=== PATIENT | male | born 1995 | race Caucasian/White ===

== ENCOUNTER 2025-09-15 10:05 | Outpatient (AMB) | payer OTHER, SELFPAY ==
[2025-09-15 10:14] VITALS: BP 126/80; PULSE 87; RESP 18; TEMP 36.3; O2SAT 96; BMI 28.1
--- NOTE | 2025-09-15 10:14 | A.OFFPC_ITS ---
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 Accompanied by: Self / Same As Patient Allergies Seasonal Allergies Allergy (Mild, Verified 09/15/25 10:21) Unknown Medication List - Last Reconciled 09/15/25 by Margaret Jones MD No Known Home Meds Tobacco use date assessed: 09/15/25 Dental Screening Dental Screen Date: 09/15/25 Did you have a dental visit in the last 12 months?: Yes Did you have a dental problem in the last 6 months where you did not have access to dental care?: No Was dental information given to patient?: Patient has dentist HPI HPI Comments History of Present Illness Details The patient is a 30-year-old male establishing [facility]. He is presenting for management of Attention-Deficit/Hyperactivity Disorder (ADHD). He was diagnosed with ADHD in second or third grade and was treated with Ritalin, which he reports was highly effective. He had an adverse reaction to Concerta in the past, which caused mood swings and anger. 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 Recently, he has noticed increased distractibility and has made a couple of mistakes at work, which has prompted him to seek treatment again due to concerns about jeopardizing his career. He has been in therapy for almost two years, and his therapist supports the decision to restart medication. The patient reports a history of borderline alcoholism during the pandemic, with daily drinking, but has since implemented stricter rules for himself. He uses nicotine pouches and acknowledges that he should probably not use them while on ADHD medication. Family history is significant for lung cancer in his maternal grandmother who smoked, and an unspecified history of cancer on both sides of his family. He has received two initial COVID-19 vaccine doses and one booster. He also reports having received hepatitis C vaccines in the past. [facility], [facility] Medical History (Updated 09/15/25 @ 14:26 by Margaret Jones MD) ADHD Social History (Updated 09/15/25 @ 10:30 by Hermelinda Gómez MA) Household Members: None Housing: Apartment Alcohol intake: current Patient Tobacco Use Status: Never used Tobacco e-Cigarette/Vaping Use: Former Use Current occupational status: employed Current occupation: [employer] Cognitive needs: No Hearing needs: No Vision needs: Yes Questionnaire PHQ-9 Over the last 2 weeks, how often have you been bothered by any of the following problems? 1. Little interest or pleasure in doing things: not at all 2. Feeling down, depressed, or hopeless: not at all 3. Trouble falling or staying asleep, or sleeping too much: several days 4. Feeling tired or having little energy: not at all 5. Poor appetite or overeating: not at all 6. Feeling bad about yourself - or that you are a failure or have let yourself or your family down: not at all 7. Trouble concentrating on things, such as reading the newspaper or watching television: several days 8. Moving or speaking so slowly that other people could have noticed. Or the opposite - being so fidgety or restless that you have been moving around a lot more than usual: not at all 9. Thoughts that you would be better off or of hurting yourself in some way: not at all Total score: 2 Source: Developed by Drs. Mamadou Stubbs, Brandi Valles, Rob Huerta and colleagues, with an educational ranjeet from [employer]. Thrive Questionnaire Date Thrive assessed: 09/15/25 I am a: Patient What is your living situation today?: I have a steady place to live Within the past 12 months, did the food you bought not last and you didn't have the money to get more?: Never true Within the past 12 months, did you worry whether your food would run out before you got money to buy more?: Never true Do you have trouble paying for medicines?: No Do you have trouble getting transportation to medical appointments?: No Do you have trouble paying your heating and electricity bill?: No Do you have trouble taking care of your child, family member or friend?: No Do you have trouble with day-to-day activities such as bathing, preparing meals, shopping, managing finances, etc.?: No Are you currently unemployed and looking for a job?: No Are you interested in more education?: I choose not to answer this question Please select the resources that you would like help with: None Currently or been in a relationship where the following occur: No concerns reported THRIVE Score: 0 AUDIT C Alcohol Use Questionnaire (AUDIT-C) 1. How often do you have a drink containing alcohol?: 2-4 times a month 2. How many drinks containing alcohol do you have on a typical day when you are drinking?: 3 or 4 3. How often do you have six or more drinks on one occasion?: Less than monthly Total Score: 4 SURENDRA-7 AMB Questionnaire SURENDRA-7 Date SURENDRA - 7 assessed: 09/15/25 Feeling nervous, anxious, or on edge: 0 = Not at all Not being able to stop or control worryin = Not at all Worrying too much about different things: 0 = Not at all Trouble relaxin = Not at all Being so restless that it is hard to sit still: 0 = Not at all Becoming easily annoyed or irritable: 0 = Not at all Feeling afraid as if something awful might happen: 0 = Not at all Total SURENDRA-7 score (0-4 normal; 5-9 mild; 10-14 moderate; 15-21 severe): 0 Source: Developed by Drs. Mamadou Stubbs, Brandi Valles, Rob Huerta and colleagues, with an educational ranjeet from [employer]. Review of Systems Const Details: As per HPI. Physical exam (Primary Care) Vital Signs: Last Vital Signs Temp 97.3 F 09/15/25 10:14 Pulse 87 09/15/25 10:14 Resp 18 09/15/25 10:14 BP 126/80 09/15/25 10:14 Pulse Ox 96 09/15/25 10:14 Oxygen Delivery Method Room Air 09/15/25 10:14 BMI result Body Mass Index 28.1 Tobacco/Smoking Status: Tobacco use Status Tobacco use date assessed 09/15/25 09/15/25 10:33 Patient Tobacco Use Status Never used Tobacco 09/15/25 10:33 e-Cigarette/Vaping Use Former Use 09/15/25 10:33 PHQ-9: PHQ-9 Score PHQ-9: Total score 2 09/15/25 10:37 Thrive Assessment: Date of Thrive Assessment Date Thrive assessed 09/15/25 09/15/25 10:33 Currently or been in a relationship where the following occur: No concerns reported Const Other: Pertinent findings are in BOLD GENERAL APPEARANCE NAD, activity normal for age, well developed/ well nourished, no cyanosis, pallor, or diaphoresis. EYES lids/conjunctiva normal. EARS/NOSE/THROAT Mucous membranes moist, nares normal, lips/teeth normal uvula midline without oral pharyngeal erythema, exudate or swelling TMs normal bilaterally. No lymphangitis/lymphedema. HEAD/NECK normocephalic atraumatic, no facial trauma, neck is supple. RESPIRATORY respiratory effort normal, speaks in full sentences, no tripod position, no accessory muscle use. Lungs clear to auscultation without rhonchi, wheezes, rales CARDIAC Regular rate and rhythm, no edema. ABDOMINAL Soft, ND/NT. No evidence of fluid wave. No pulsatile masses on exam, rebound tenderness, Escobar sign or pain over Mcburney's point. MUSCLES/EXTREMITIES No abnormal range of motion, no swelling. SKIN Warm, pink and dry. No rashes, dermatoses, petechiae or lesions. NEUROLOGICAL Speech is clear and appropriate. Normal level of consciousness. Gait and coordination are normal. 5/5 strength in all extremities. PSYCH Normal mood and affect. Judgement/competence is appropriate Coding Level of Care Code New Pt Level 4 (50064) New Pt Prev Care 18-39yr(03299 Diagnoses Healthcare maintenance Z00.00 Attention deficit hyperactivity disorder (ADHD), predominantly inattentive type F90.0 Attention deficit-hyperactivity disorder type: predominantly inattentive Time Spent (min) 30 Assessment & Plan Assessment & Plan (1) Healthcare maintenance: Code(s): Z00.00 - Encounter for general adult medical examination without abnormal findings Category: Medical Plan: CBC, CMP, Lipid panel, A1C, TSH w T4, vit D. Ordered today. Shingles 2 doses when >50 yo. At 50. COVID: two doses. Completed in the past. Pneumococcal: >50 yo. 18-49 with CKD, lung disease, weakened immune system, Heart disease, DM, cochlear implant. At 50. Flu vaccine: He gets it in the . Tdap: every 10 years. He gets at the . Colonoscopy: 45-75. at 45. No family history of colon cancer. AAA: 65 -75. at 65. CT lun - 80. at 50. PSA: 50 -70 every two years. HIV: Ordered. HCV: Ordered. (2) ADHD: Code(s): F90.9 - Attention-deficit hyperactivity disorder, unspecified type Category: Medical Qualifiers: Attention deficit-hyperactivity disorder type: predominantly inattentive Qualified Code(s): F90.0 - Attention-deficit hyperactivity disorder, predominantly inattentive type Plan: - The patient has a clear history of ADHD from childhood with a positive response to Ritalin. - His current symptoms are significantly impacting his job performance, warranting a return to pharmacotherapy. - Will prescribe Ritalin (methylphenidate) ER 10 mg once daily. - Discussed taking the medication on workdays and having breaks on weekends to reduce the risk of dependence and to allow for social drinking without mixing substances. - Counseled the patient to avoid alcohol consumption while on Ritalin due to the risk of consuming more alcohol than intended, but advised that if he plans to drink, he should not take the medication that day. - Advised that treatment with a stimulant may help reduce his use of other substances like nicotine. - The patient will need to provide documentation of the prescription to his [facility]. - Follow-up scheduled in one month to assess medication efficacy and tolerance. 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 We reviewed his past positive experience with Ritalin. I have prescribed Ritalin ER 10 mg daily and recommended he take it on work days while taking breaks on weekends to help prevent dependence. I counseled him extensively on substance use, advising him not to consume alcohol while on Ritalin due to the risk of increased alcohol intake. We discussed that if he plans to drink, he should skip his medication dose for the day. We also discussed that correctly medicating his ADHD may help reduce his cravings for other substances like nicotine. I explained that I will be ordering baseline labs, including a general health panel, HIV, and Hepatitis C tests. I also advised him to check with his [facility] regarding the specific documentation needed for his prescription, as it is a controlled substance. I will see him for a follow-up in one month to assess his response to the medication. Orders: Orders Hepatitis C Antibody Reflex Today Z00.00 - Encounter for general adult medical examination without abnormal findings Complete Blood Count no Diff Today Z00.00 - Encounter for general adult medical examination without abnormal findings Comprehensive Met. Panel Today Z00.00 - Encounter for general adult medical examination without abnormal findings Hemoglobin A1c Today Z00.00 - Encounter for general adult medical examination without abnormal findings HIV Ab/Ag Today Z00.00 - Encounter for general adult medical examination without abnormal findings TSH reflex Free T4 Today Z00.00 - Encounter for general adult medical examination without abnormal findings Lipid Panel Today Z00.00 - Encounter for general adult medical examination without abnormal findings Medications: New methylphenidate HCl LA (Ritalin LA) Partial Fill upon patient request. 10 mg PO DAILY 30 caps 0RF
== END 2025-09-15 11:10 | disposition home or self-care (01) ==
LOC: HO.HMCH 10:06
PROVIDERS: Visit Provider Internal Medicine
DX: F90.0 Attention-deficit hyperactivity disorder, predominantly inattentive type (principal)

== ENCOUNTER → 2025-09-15 10:05 | Outpatient (BNVA) | payer OTHER, SELFPAY | PROVIDERS: Visit Provider Internal Medicine | DX: Z00.00 Encounter for general adult medical examination without abnormal findings (principal); F90.0 Attention-deficit hyperactivity disorder, predominantly inattentive type; Z72.0 Tobacco use | CPT/HCPCS: 99202 ==

== ENCOUNTER 2025-10-20 10:48 | Outpatient (AMB) | payer OTHER, SELFPAY ==
--- NOTE | 2025-10-20 11:19 | A.OFFPC_ITS ---
Vital Signs 10/20/25 11:20 Height 6 ft 1 in Weight 212 lb 2 oz BMI 28.0 BP 126/90 H Blood Pressure Location Lt brachial Position Sitting Pulse 80 Pulse Source Pulse Oximeter Temp 97.3 F Temp Source Temporal Artery Scan Pulse Oximetry (%) 96 Oxygen Delivery Method Room Air Intake Visit Reasons: 1 month fu Intake Note: Patient is here to follow up on ADHD. Director Of Medical Services Required: No K9 Handler: Not Required per policy Accompanied by: Self / Same As Patient Allergies Seasonal Allergies Allergy (Mild, Verified 10/20/25 11:20) Unknown Medication List - Last Reconciled 10/20/25 by Margaret Jones MD methylphenidate HCl LA (Ritalin LA) 10 mg PO DAILY Tobacco use date assessed: 10/20/25 Dental Screening Dental Screen Date: 09/15/25 HPI HPI Comments History of Present Illness Details The patient is a 30 year old individual presenting for a follow-up on Ritalin treatment for ADHD. The patient has a history of ADHD, with an official diagnosis made between second and third grade. Past medication trials include Concerta, which was ineffective and caused mood swings, and Ritalin, which the patient last took at age 18 before enlisting in the . The patient was recently restarted on Ritalin and reports it is helping significantly with focus and productivity at work, noting tasks that previously took hours are now completed in half an hour. The patient states that while the medication does not worsen anxiety, it makes it easier to focus on negative thoughts, though this has not been overwhelming. The patient takes the medication on workdays and takes breaks on the weekends. The patient has significantly reduced alcohol consumption but occasionally has a beer or whiskey on weekends, and will not take Ritalin on days the patient plans to drink. The patient uses Zyn nicotine pouches and has noticed a reduction in their use on days when taking Ritalin, with an eventual goal to quit. The patient used to use vape pens but stopped four to five years ago. [facility] Medical History (Updated 10/20/25 @ 12:58 by Margaret Jones MD) ADHD Surgical History (Updated 10/20/25 @ 11:25 by RENE Campbell) No pertinent past surgical history Social History Household Members: None Housing: Apartment Alcohol intake: current Patient Tobacco Use Status: Never used Tobacco e-Cigarette/Vaping Use: Former Use Second Hand Smoke Exposure: No service: No Current occupational status: employed Current occupation: [employer] Cognitive needs: No Hearing needs: No Vision needs: Yes Questionnaire Thrive Questionnaire Date Thrive assessed: 09/15/25 I am a: Patient What is your living situation today?: I have a steady place to live Within the past 12 months, did the food you bought not last and you didn't have the money to get more?: Never true Within the past 12 months, did you worry whether your food would run out before you got money to buy more?: Never true Do you have trouble paying for medicines?: No Do you have trouble getting transportation to medical appointments?: No Do you have trouble paying your heating and electricity bill?: No Do you have trouble taking care of your child, family member or friend?: No Do you have trouble with day-to-day activities such as bathing, preparing meals, shopping, managing finances, etc.?: No Are you currently unemployed and looking for a job?: No Are you interested in more education?: I choose not to answer this question Please select the resources that you would like help with: None Currently or been in a relationship where the following occur: No concerns reported THRIVE Score: 0 SURENDRA-7 AMB Questionnaire SURENDRA-7 Date SURENDRA - 7 assessed: 09/15/25 Source: Developed by Drs. Mamadou Stubbs, Brandi Valles, Rob Huerta and colleagues, with an educational ranjeet from [employer]. Review of Systems Const Details: As per HPI. Physical exam (Primary Care) Vital Signs: Last Vital Signs Temp 97.3 F 10/20/25 11:20 Pulse 80 10/20/25 11:20 BP 126/90 H 10/20/25 11:20 Pulse Ox 96 10/20/25 11:20 Oxygen Delivery Method Room Air 10/20/25 11:20 BMI result Body Mass Index 28.0 Tobacco/Smoking Status: Tobacco use Status Tobacco use date assessed 10/20/25 10/20/25 11:27 Patient Tobacco Use Status Never used Tobacco 10/20/25 11:27 e-Cigarette/Vaping Use Former Use 10/20/25 11:27 Thrive Assessment: Date of Thrive Assessment Date Thrive assessed 09/15/25 10/20/25 11:27 Currently or been in a relationship where the following occur: No concerns reported Const Other: Pertinent findings are in BOLD GENERAL APPEARANCE NAD, activity normal for age, well developed/ well nourished, no cyanosis, pallor, or diaphoresis. EYES lids/conjunctiva normal. EARS/NOSE/THROAT Mucous membranes moist, nares normal, lips/teeth normal uvula midline without oral pharyngeal erythema, exudate or swelling TMs normal bilaterally. No lymphangitis/lymphedema. HEAD/NECK normocephalic atraumatic, no facial trauma, neck is supple. RESPIRATORY respiratory effort normal, speaks in full sentences, no tripod position, no accessory muscle use. Lungs clear to auscultation without rhonchi, wheezes, rales CARDIAC Regular rate and rhythm, no edema. ABDOMINAL Soft, ND/NT. No evidence of fluid wave. No pulsatile masses on exam, rebound tenderness, Escobar sign or pain over Mcburney's point. MUSCLES/EXTREMITIES No abnormal range of motion, no swelling. SKIN Warm, pink and dry. No rashes, dermatoses, petechiae or lesions. NEUROLOGICAL Speech is clear and appropriate. Normal level of consciousness. Gait and coordination are normal. 5/5 strength in all extremities. PSYCH Normal mood and affect. Judgement/competence is appropriate Coding Level of Care Code Est Pt Level 4 (56522) Diagnoses Attention deficit hyperactivity disorder (ADHD), predominantly inattentive type F90.0 Attention deficit-hyperactivity disorder type: predominantly inattentive Nicotine dependence, uncomplicated, unspecified nicotine product type F17.200 Nicotine product type: unspecified Substance use status: uncomplicated Elevated blood pressure reading R03.0 Time Spent (min) 40 Assessment & Plan Assessment & Plan (1) ADHD: Code(s): F90.9 - Attention-deficit hyperactivity disorder, unspecified type Category: Medical Qualifiers: Attention deficit-hyperactivity disorder type: predominantly inattentive Qualified Code(s): F90.0 - Attention-deficit hyperactivity disorder, predominantly inattentive type Plan: - The patient is doing well on Ritalin with improved focus and productivity at work. - Continue Ritalin, to be used as needed, primarily on workdays. - It was advised to take breaks from the medication on weekends or when not working to mitigate side effects. - Monitor for any worsening of anxiety or obsessive negative thoughts; if these become overwhelming, consider changing medication or formulation. - A refill for Ritalin will be provided. - A letter was provided for the patient's medical unit confirming stability on the medication. - A referral to psychiatry will be placed for additional support and for a potential formal assessment if required by the . (2) Nicotine dependence: Code(s): F17.200 - Nicotine dependence, unspecified, uncomplicated Category: Medical Qualifiers: Nicotine product type: unspecified Substance use status: uncomplicated Qualified Code(s): F17.200 - Nicotine dependence, unspecified, uncomplicated Plan: - The patient reports using Zyn nicotine pouches and notes a decreased urge to use them while on Ritalin. - The patient's goal is to eventually quit. - Continue to monitor use; no new interventions at this time. (3) Elevated blood pressure reading: Code(s): R03.0 - Elevated blood-pressure reading, without diagnosis of hypertension Category: Medical Plan: - Blood pressure today was 126/90 mmHg, which may be related to Ritalin and caffeine intake. - The patient has a family history of hypertension (father). - Advised the patient to monitor blood pressure at home; the patient will purchase a blood pressure cuff. - If readings are consistently elevated, the patient should follow up. Plan I discussed the patient's positive response to Ritalin for ADHD, noting the improvement in focus and productivity. We reviewed the side effect of increased focus on negative thoughts and agreed on a management strategy of using the medication as needed on workdays and taking breaks on weekends. I advised that if these feelings become overwhelming, we can explore other options like different medications or a psychiatry consultation. I will provide a refill. We addressed the need for a letter for the patient's medical unit. To provide comprehensive support and anticipate potential requirements, I will also place a referral to psychiatry. We noted the slightly elevated blood pressure today, the patient's family history of hypertension, and the patient's plan to monitor it at home. Time spent is 40 minutes. This was on counselling on the appropriate use of Ritalin, chart review, discussing blood pressure readings, and discussing and filling paperwork. Orders: Referrals Psychiatry Referral F90.0 - Attention-deficit hyperactivity disorder, predominantly inattentive type Medications: Refilled methylphenidate HCl LA (Ritalin LA) Partial Fill upon patient request. 10 mg PO DAILY 30 caps 0RF
[2025-10-20 11:20] VITALS: BP 126/90; PULSE 80; TEMP 36.3; O2SAT 96; BMI 28.0
== END 2025-10-20 12:15 | disposition home or self-care (01) ==
LOC: HO.HMCH 10:49
PROVIDERS: PCP Internal Medicine; Visit Provider Internal Medicine
DX: F90.0 Attention-deficit hyperactivity disorder, predominantly inattentive type (principal); F17.200 Nicotine dependence, unspecified, uncomplicated; R03.0 Elevated blood-pressure reading, without diagnosis of hypertension

== ENCOUNTER → 2025-10-20 10:48 | Outpatient (BNVA) | payer OTHER, SELFPAY | PROVIDERS: Visit Provider Internal Medicine | DX: F90.0 Attention-deficit hyperactivity disorder, predominantly inattentive type (principal); R03.0 Elevated blood-pressure reading, without diagnosis of hypertension; F17.200 Nicotine dependence, unspecified, uncomplicated; Z71.6 Tobacco abuse counseling | CPT/HCPCS: 99212 ==